=== PATIENT | male | born 1995 | race Caucasian/White ===

== ENCOUNTER 2019-01-13 21:08 | Emergency (ER) | payer OTHER, SELFPAY ==
[2019-01-13 21:13] VITALS: BP 120/67; PULSE 69; RESP 16; TEMP 37.2; O2SAT 98
--- NOTE | 2019-01-13 21:32 | DI.RAD_ITS ---
SYMPTOM/DIAGNOSIS: RIGHT ANKLE PAIN AFTER ROLLING IT. RIGHT ANKLE: No acute fracture or dislocation is present
--- NOTE | 2019-01-13 21:44 | W.ED.GENAD ---
Discharge Plan Disposition Patient Disposition: HOME Condition: Good Discharge Details Chief Complaint: Orthopedic Clinical Impression: Ankle sprain ED Provider: Owen Jade Home Meds and New Rx's Prescriptions: No Action No Known Home Meds RF: 0 Discharge Instructions Instructions: Ankle Sprain (ED) Additional Instructions: Please keep your ankle wrapped in the Murray wrap. Please use the crutches as needed. Please use Tylenol and Motrin as needed for pain. Please use ice regularly on the ankle to keep swelling down. I have extensively reviewed the treatment plan and discharge instructions with the patient. I have addressed all patient concerns at this time. The patient was made aware of what symptoms to monitor for that would warrant a return to the emergency department. Discussed the plan with the patient, they demonstrate verbal understanding and agreement with our assessment and plan at this time. Medical Decision Making This is a 23-year-old male with no significant past medical history who presents with pain in his right lateral ankle over the distal fibula. He rolled it while playing basketball. He demonstrates a normal neurovascular exam otherwise, no signs of neurologic or vascular compromise. Mild swelling and tenderness over the distal fibula. No significant joint instability. I suspect a mild tear of the anterior talofibular ligament as the cause of his symptoms. We will get an x-ray to rule out fracture. 10:00 AM X-ray shows no evidence of acute fracture. There is mild effusion. Suspect ligamentous injury and sprain. We will Murray wrap, give crutches as needed, and have close follow-up with his PCP. Recommend continued NSAIDs and ice. I have extensively reviewed the treatment plan and discharge instructions with the patient. I have addressed all patient concerns at this time. The patient was made aware of what symptoms to monitor for that would warrant a return to the emergency department. Discussed the plan with the patient, they demonstrate verbal understanding and agreement with our assessment and plan at this time. TECHNIQUE: Imaging protocol: XR Right ankle. Views: 3 or more views. COMPARISON: No relevant prior studies available. FINDINGS: Bones/joints: No fractures. No blastic or lytic lesions. No periostitis or osteolysis. The ankle mortise joint is well maintained. No hindfoot coalition. Small ankle joint effusion. Soft tissues: Moderate lateral soft tissue swelling. Other findings: The visualized hindfoot and midfoot are grossly well aligned. IMPRESSION: 1. No fracture or dislocation. 2. Lateral soft tissue swelling. 3. Small ankle joint effusion. Thank you for allowing us to participate in the care of your patient. Dictated and Authenticated by: Kang Graves MD [facility] General Date/Time Provider Initiated Documentation: 01/13/19 21:17. HPI Narrative: This is a 23-year-old male with no significant past medical history who presents today for right ankle pain. The patient states that he was playing basketball an hour or 2 ago when he twisted his ankle medially, causing pain in his lateral right ankle. Pain is made worse with movement and ambulation. He did take Tylenol Motrin prior to arrival. He denies any numbness tingling or weakness. He denies pain on the medial aspect of his ankle or on his foot. Pain is primarily located on the lateral component. He denies any other modifying factors. No IV or illicit drugs. No pertinent family history, no recent surgeries. Related Data Home Medications Medication Instructions Recorded Confirmed Unknown [No Known Home Meds] 01/13/19 01/13/19 Allergies Allergy/AdvReac Type Severity Reaction Status Date / Time No Known Allergies Allergy Unverified 01/13/19 21:16 General Stated Complaint: Orthopedic BRISA: 4 Review of Systems Review of Systems All systems reviewed & are unremarkable except as noted in HPI and below PFSH Social History Smoking/Tobacco Use Status: Never Alcohol Intake: current Alcohol Intake frequency: holidays/special occasions only Drug use: Never Do you feel safe at home: Yes Do you feel safe in your relationship?: Yes Exam Narrative Exam Narrative: 1.Const: Well-nourished, Well-developed, appearing stated age 2.Eyes: PERRL, no conjunctival injection, and symmetrical lids. 3.ENT: Atraumatic external nose and ears. Moist MM. Neck: Symmetric, trachea midline, No thyromegaly. 4.CVS: +S1/S2, No murmurs or gallops. Peripheral pulses 2+ and equal in all extremities. Brisk capillary refill in all extremities. 5.RESP: Unlabored respiratory effort. Clear to auscultation bilaterally. No wheezes rales or rhonchi 6.GI: Soft, Nontender/Nondistended, No hepatosplenomegaly. No guarding or rebound. 7.MSK: Normocephalic, Normal movement of all extremities, patient has +5 out of 5 strength in the lower extremities in dorsiflexion and plantarflexion, knee flexion and extension, hip flexion and extension. There is +2 over 2 dorsalis pedis pulses bilaterally. There is normal sensation to the skin with light touch at the foot knee and hip. Patient demonstrates notable swelling over the distal fibula. Mild pain on palpation of this. No pain with pronation or supination. No pain or tenderness in the distal leg with squeezing of the tibia and fibula no pain over the calcaneus. 8.Skin: Warm, Dry. No rashes or lesions. 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 Sensation grossly intact, no focal neurologic deficits. 10.Psych: (AAO) x3. Appropriate mood and affect Course Vital Signs Temperature 37.2 C 01/13/19 21:13 Pulse 69 01/13/19 21:13 Respiratory Rate 16 01/13/19 21:13 Blood Pressure 120/67 01/13/19 21:13 Pulse Oximetry 98 01/13/19 21:13 Temperature 37.2 C 01/13/19 21:13 Temperature Source Skin 01/13/19 21:13 Pulse 69 01/13/19 21:13 Respiratory Rate 16 01/13/19 21:13 Respiratory Effort Non-Labored 01/13/19 21:15 Blood Pressure 120/67 01/13/19 21:13 Blood Pressure Position Sitting 01/13/19 21:13 Pulse Oximetry 98 01/13/19 21:13 Oxygen Delivery Method Room Air 01/13/19 21:13 Oxygen Flow Rate 0 01/13/19 21:13 Pain Level 5 01/13/19 21:18
--- NOTE | 2019-01-13 21:53 | DI.VRAD_ITS ---
EXAM: XR Right Ankle EXAM DATE/TIME: 01/13/2019 9:19 PM CLINICAL HISTORY: 23 years old, male; Injury or trauma; Injury history: Pain after rolling the right ankle; Initial encounter; Sprain or strain; Injury date: 01/13/2019 TECHNIQUE: Imaging protocol: XR Right ankle. Views: 3 or more views. COMPARISON: No relevant prior studies available. FINDINGS: Bones/joints: No fractures. No blastic or lytic lesions. No periostitis or osteolysis. The ankle mortise joint is well maintained. No hindfoot coalition. Small ankle joint effusion. Soft tissues: Moderate lateral soft tissue swelling. Other findings: The visualized hindfoot and midfoot are grossly well aligned. IMPRESSION: 1. No fracture or dislocation. 2. Lateral soft tissue swelling. 3. Small ankle joint effusion. Dictated and Authenticated by: Kang Graves MD. Ordering:TRISHA Weaver MD
--- NOTE | 2019-01-13 21:53 | ED.GENADUL_ITS ---
Discharge Plan Disposition Patient Disposition: HOME Condition: Good Discharge Details Chief Complaint: Orthopedic Clinical Impression: Ankle sprain ED Provider: Owen Jade Home Meds and New Rx's Prescriptions: No Action No Known Home Meds RF: 0 Discharge Instructions Instructions: Ankle Sprain (ED) Additional Instructions: Please keep your ankle wrapped in the Murray wrap. Please use the crutches as needed. Please use Tylenol and Motrin as needed for pain. Please use ice regularly on the ankle to keep swelling down. I have extensively reviewed the treatment plan and discharge instructions with the patient. I have addressed all patient concerns at this time. The patient was made aware of what symptoms to monitor for that would warrant a return to the emergency department. Discussed the plan with the patient, they demonstrate verbal understanding and agreement with our assessment and plan at this time. Medical Decision Making This is a 23-year-old male with no significant past medical history who presents with pain in his right lateral ankle over the distal fibula. He rolled it while playing basketball. He demonstrates a normal neurovascular exam otherwise, no signs of neurologic or vascular compromise. Mild swelling and tenderness over the distal fibula. No significant joint instability. I suspect a mild tear of the anterior talofibular ligament as the cause of his symptoms. We will get an x-ray to rule out fracture. 10:00 AM X-ray shows no evidence of acute fracture. There is mild effusion. Suspect ligamentous injury and sprain. We will Murray wrap, give crutches as needed, and have close follow-up with his PCP. Recommend continued NSAIDs and ice. I have extensively reviewed the treatment plan and discharge instructions with the patient. I have addressed all patient concerns at this time. The patient was made aware of what symptoms to monitor for that would warrant a return to the emergency department. Discussed the plan with the patient, they demonstrate verbal understanding and agreement with our assessment and plan at this time. TECHNIQUE: Imaging protocol: XR Right ankle. Views: 3 or more views. COMPARISON: No relevant prior studies available. FINDINGS: Bones/joints: No fractures. No blastic or lytic lesions. No periostitis or osteolysis. The ankle mortise joint is well maintained. No hindfoot coalition. Small ankle joint effusion. Soft tissues: Moderate lateral soft tissue swelling. Other findings: The visualized hindfoot and midfoot are grossly well aligned. IMPRESSION: 1. No fracture or dislocation. 2. Lateral soft tissue swelling. 3. Small ankle joint effusion. Thank you for allowing us to participate in the care of your patient. Dictated and Authenticated by: Kang Graves MD [facility] General Date/Time Provider Initiated Documentation: 01/13/19 21:17 . HPI Narrative: This is a 23-year-old male with no significant past medical history who presents today for right ankle pain. The patient states that he was playing basketball an hour or 2 ago when he twisted his ankle medially, causing pain in his lateral right ankle. Pain is made worse with movement and ambulation. He did take Tylenol Motrin prior to arrival. He denies any numbness tingling or weakness. He denies pain on the medial aspect of his ankle or on his foot. Pain is primarily located on the lateral component. He denies any other modifying factors. No IV or illicit drugs. No pertinent family history, no recent surgeries. Related Data Home Medications Medication Instructions Recorded Confirmed Unknown [No Known Home Meds] 01/13/19 01/13/19 Allergies Allergy/AdvReac Type Severity Reaction Status Date / Time No Known Allergies Allergy Unverified 01/13/19 21:16 General Stated Complaint: Orthopedic BRISA: 4 Review of Systems Review of Systems All systems reviewed & are unremarkable except as noted in HPI and below PFSH Social History Smoking/Tobacco Use Status: Never Alcohol Intake: current Alcohol Intake frequency: holidays/special occasions only Drug use: Never Do you feel safe at home: Yes Do you feel safe in your relationship?: Yes Exam Narrative Exam Narrative: 1.Const: Well-nourished, Well-developed, appearing stated age 2.Eyes: PERRL, no conjunctival injection, and symmetrical lids. 3.ENT: Atraumatic external nose and ears. Moist MM. Neck: Symmetric, trachea midline, No thyromegaly. 4.CVS: +S1/S2, No murmurs or gallops. Peripheral pulses 2+ and equal in all extremities. Brisk capillary refill in all extremities. 5.RESP: Unlabored respiratory effort. Clear to auscultation bilaterally. No wheezes rales or rhonchi 6.GI: Soft, Nontender/Nondistended, No hepatosplenomegaly. No guarding or rebound. 7.MSK: Normocephalic, Normal movement of all extremities, patient has +5 out of 5 strength in the lower extremities in dorsiflexion and plantarflexion, knee flexion and extension, hip flexion and extension. There is +2 over 2 dorsalis pedis pulses bilaterally. There is normal sensation to the skin with light touch at the foot knee and hip. Patient demonstrates notable swelling over the distal fibula. Mild pain on palpation of this. No pain with pronation or supination. No pain or tenderness in the distal leg with squeezing of the tibia and fibula no pain over the calcaneus. 8.Skin: Warm, Dry. No rashes or lesions. 9.Neuro: technician assistant II-XII grossly intact. Sensation grossly intact, no focal neurolog ic deficits. 10.Psych: (AAO) x3. Appropriate mood and affect Course Vital Signs Temperature 37.2 C 01/13/19 21:13 Pulse 69 01/13/19 21:13 Respiratory Rate 16 01/13/19 21:13 Blood Pressure 120/67 01/13/19 21:13 Pulse Oximetry 98 01/13/19 21:13 Temperature 37.2 C 01/13/19 21:13 Temperature Source Skin 01/13/19 21:13 Pulse 69 01/13/19 21:13 Respiratory Rate 16 01/13/19 21:13 Respiratory Effort Non-Labored 01/13/19 21:15 Blood Pressure 120/67 01/13/19 21:13 Blood Pressure Position Sitting 01/13/19 21:13 Pulse Oximetry 98 01/13/19 21:13 Oxygen Delivery Method Room Air 01/13/19 21:13 Oxygen Flow Rate 0 01/13/19 21:13 Pain Level 5 01/13/19 21:18
== END 2019-01-13 22:23 | disposition home or self-care (01) ==
PROVIDERS: Emergency Provider Student in an Organized Health Care Education/Training Program
DX: S93.401A Sprain of unspecified ligament of right ankle, initial encounter (principal); X50.1XXA Overexertion from prolonged static or awkward postures, initial encounter; Y93.67 Activity, basketball
CPT/HCPCS: 99283; 73610; 99282; E0114

== ENCOUNTER 2020-04-10 15:01 | Outpatient (REF) | payer MEDICAID, SELFPAY ==
[2020-04-12 07:28] LABS: Patient Race White; SARS-CoV-2 RNA Undetected (Undetected); SARS-CoV-2 Specimen Source Nasal
== END 2020-04-10 15:21 ==
LOC: NCHCN 15:01
PROVIDERS: Visit Provider Physician Assistant
DX: Z20.828 Contact with and (suspected) exposure to other viral communicable diseases (principal)
CPT/HCPCS: U0003

== ENCOUNTER 2020-11-02 11:03 | Outpatient (CLI) | payer MEDICAID, SELFPAY ==
--- NOTE | 2020-11-02 10:00 | DI.RAD_ITS ---
EXAM: XR CLAVICLE RT CLINICAL HISTORY: F/U FRACTURE TECHNIQUE: COMPARISON: CR CLAVICLE RIGHT 2V from 10/24/2020 FINDINGS: Two views were obtained and show previous described midclavicular fracture. No gross interval change in alignment of the fracture fragments comparison with examination of October 24. IMPRESSION: RADIATION DOSE DELIVERED: Total DLP
== END 2020-11-02 11:04 | disposition home or self-care (01) ==
LOC: DIORS 11:04
PROVIDERS: PCP Internal Medicine Gastroenterology; Referring Provider Internal Medicine Gastroenterology; Visit Provider Physician Assistant
DX: S42.021A Displaced fracture of shaft of right clavicle, initial encounter for closed fracture (principal)
CPT/HCPCS: 73000

== ENCOUNTER 2020-11-09 10:55 | Outpatient (CLI) | payer MEDICAID, SELFPAY ==
--- NOTE | 2020-11-09 10:30 | DI.RAD_ITS ---
EXAM: XR CLAVICLE RT LIMITED 1V CLINICAL HISTORY: F/U FRACTURE TECHNIQUE: 2D digital imaging was performed. COMPARISON: CR XR CLAVICLE RT from 11/02/2020 FINDINGS: BONES: No change in alignment of the right clavicular fracture. No new fracture or dislocation. No bony destructive lesion is seen. JOINTS: No dislocation present. SOFT TISSUE: Normal IMPRESSION: Stable right clavicular fracture. DATA REPOSITORY: RADIATION DOSE DELIVERED:
== END 2020-11-09 10:56 | disposition home or self-care (01) ==
LOC: DIORS 10:56
PROVIDERS: PCP Internal Medicine Gastroenterology; Referring Provider Internal Medicine Gastroenterology; Visit Provider Physician Assistant Surgical
DX: S42.021D Displaced fracture of shaft of right clavicle, subsequent encounter for fracture with routine healing (principal)
CPT/HCPCS: 73000

== ENCOUNTER 2021-01-08 08:42 | Outpatient (CLI) | payer MEDICAID, SELFPAY ==
--- NOTE | 2021-01-08 08:30 | DI.RAD_ITS ---
Exam(s) XR CLAVICLE RT EXAM: XR CLAVICLE RT CLINICAL HISTORY: f/u fracture TECHNIQUE: 2D digital imaging was performed. COMPARISON: CR XR CLAVICLE RT LIMITED 1V from 11/09/2020 FINDINGS: There is stable alignment of the right clavicular fracture since 11/09/2020. The fracture line is stil l visualized. The soft tissues are unremarkable. IMPRESSION: Stable right clavicular fracture. DATA REPOSITORY: RADIATION DOSE DELIVERED:
== END 2021-01-08 08:43 | disposition home or self-care (01) ==
LOC: DIORS 08:44
PROVIDERS: PCP Internal Medicine Gastroenterology; Referring Provider Physician Assistant; Visit Provider Physician Assistant
DX: S42.021D Displaced fracture of shaft of right clavicle, subsequent encounter for fracture with routine healing (principal)
CPT/HCPCS: 73000

== ENCOUNTER 2021-02-07 09:31 | Outpatient (CLI) | payer MEDICAID, SELFPAY ==
--- NOTE | 2021-02-07 09:00 | DI.RAD_ITS ---
Exam(s) XR CLAVICLE RT LIMITED 1V EXAM: XR CLAVICLE RT LIMITED 1V CLINICAL HISTORY: F/U FRACTURE TECHNIQUE: 2D digital imaging was performed. COMPARISON: CR XR CLAVICLE RT from 01/08/2021 FINDINGS: There has been no change in the alignment the clavicle fracture. The AC joint is not widened. IMPRESSION: Stable alignment of clavicle fracture. DATA REPOSITORY: RADIATION DOSE DELIVERED:
== END 2021-02-07 09:32 | disposition home or self-care (01) ==
LOC: DIORS 09:40
PROVIDERS: PCP Internal Medicine Gastroenterology; Referring Provider Internal Medicine Gastroenterology; Visit Provider Student in an Organized Health Care Education/Training Program
DX: S42.001D Fracture of unspecified part of right clavicle, subsequent encounter for fracture with routine healing (principal); W19.XXXD Unspecified fall, subsequent encounter
CPT/HCPCS: 73000